=== PATIENT | female | born 1945 | race Caucasian/White ===

== ENCOUNTER 2017-06-22 08:42 | Emergency (ER) | payer MEDICARE, BC ==
[2017-06-22 08:58] VITALS: BP 142/60
--- NOTE | 2017-06-22 09:08 | UC ---
Respiratory Complaint HPI - HPI Summary HPI Summary: Pt presents c/o SOB with activity that began yesterday after doing gardening activities, 50 lb bags of mulch, shoveling topsoil and planting quach. Pt denies chest pain or productive cough. Pt does report seasonal allergies but is not taking an antihistamine. 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 - History of Current Complaint Chief Complaint: UCRespiratory Stated Complaint: SOB Time Seen by Provider: 06/22/17 08:50 Hx Obtained From: Patient ?: No Onset/Duration: Gradual Onset, Lasting Days, Still Present Timing: Intermittent Episodes Severity Initially: Mild Severity Currently: Mild Character: Cough: Nonproductive Aggravating Factors: Exertion Alleviating Factors: Spontaneous Resolution Associated Signs And Symptoms: Positive: Dyspnea, URI, Nasal Congestion Related History: Seasonal Allergies - Risk Factors Pulmonary Embolism Risk Factors: Negative Cardiac Risk Factors: Hypertension, CAD Pseudomonas Risk Factors: Chronic Lung Disease Tuberculosis Risk Factors: Negative - Allergies/Home Medications Allergies/Adverse Reactions: Allergies Allergy/AdvReac Type Severity Reaction Status Date / Time Oxycodone Allergy Intermediate Tachycardia Verified 06/22/17 08:49 Morphine Allergy Mild GI Upset Verified 06/22/17 08:49 Olmesartan [From Benicar] Allergy Mild Headache Verified 06/22/17 08:49 Hydrocodone AdvReac Intermediate GI Upset Verified 06/22/17 08:49 PMH/Surg Hx/FS Hx/Imm Hx Previously Healthy: Yes Cardiovascular History: Cardiac Disease, Hypertension Respiratory History: COPD - significant smoking history,, Asthma Other History Of: Negative For: HIV - Surgical History Surgical History: Yes Surgery Procedure, Year, and Place: lower back surgery, hysterectomy-1975. NASAL SEPTUM - Family History Known Family History: Positive: Cardiac Disease - Dad & Mom in 80s, Diabetes Family History: no known cardio-vascular issues in family lineage - Social History Occupation: Retired Lives: With Family Alcohol Use: Daily Alcohol Amount: COUPLE BEERS/DAY Substance Use Type: None Smoking Status (MU): Former Smoker Type: Cigarettes Have You Smoked in the Last Year: No When Did the Patient Quit Smoking/Using Tobacco: 1998 - Immunization History Most Recent Influenza Vaccination: 2017 Review of Systems Constitutional: Negative Skin: Negative Eyes: Negative ENT: Other - nasal congestion, PND, Respiratory: Shortness Of Breath, Cough Cardiovascular: Negative Gastrointestinal: Negative Genitourinary: Negative Motor: Negative Neurovascular: Negative Musculoskeletal: Negative Neurological: Negative Psychological: Negative Is Patient Immunocompromised?: No All Other Systems Reviewed And Are Negative: Yes Physical Exam Triage Information Reviewed: Yes Appearance: Well-Appearing, No Pain Distress Vital Signs: Initial Vital Signs Temp 97.2 F 06/22/17 08:49 Pulse 76 06/22/17 08:49 Resp 20 06/22/17 08:49 BP 142/60 06/22/17 08:49 Pulse Ox 98 06/22/17 08:49 Vital Signs Reviewed: Yes Eye Exam: Normal ENT Exam: Other ENT: Positive: Nasal congestion, Nasal drainage - clear, Other: - nasal mucous memeberanse white and boggy Dental Exam: Normal Neck exam: Normal Respiratory Exam: Normal Respiratory: Positive: Normal breath sounds, No respiratory distress, No accessory muscle use Cardiovascular Exam: Normal Cardiovascular: Positive: RRR Musculoskeletal Exam: Normal Neurological Exam: Normal Psychological Exam: Normal Skin Exam: Normal UC Diagnostic Evaluation - Laboratory O2 Sat by Pulse Oximetry: 98 Respiratory Course/Dx - Course Course Of Treatment: I discussed wiht the pt the need to follow up with her PCP or if symptoms worsen to go to the ER as soon as possible. - Differential Dx/Diagnosis Differential Diagnosis/HQI/PQRI: Bronchitis, Exacerbation Of COPD Provider Diagnoses: exacerbation of COPD. URI. seasonal allergies Discharge - Discharge Plan Condition: Stable Disposition: HOME Prescriptions: Cetirizine* [ZyrTEC 10 MG TAB*] 10 mg PO DAILY #20 tab predniSONE TAB* [Deltasone TAB*] 20 mg PO DAILY #4 tab Patient Education Materials: Upper Respiratory Infection (ED), Allergic Rhinitis (ED), Dyspnea (ED) Referrals: Ema PERKINS,Juan Babin [Primary Care Provider] - As Soon As Possible (Please follow up with your PCP to discuss your visit today. )
== END 2017-06-22 09:26 | disposition home or self-care (01) ==
LOC: UCCORT 08:42
DX: J44.1 Chronic obstructive pulmonary disease with (acute) exacerbation (principal); Z88.6 Allergy status to analgesic agent; I10 Essential (primary) hypertension; J30.2 Other seasonal allergic rhinitis
CPT/HCPCS: 93005; 99212; G0463

== ENCOUNTER 2017-10-27 07:01 | Emergency (ER) | payer MEDICARE, BC ==
[2017-10-27 07:21] VITALS: BP 125/63
--- NOTE | 2017-10-27 07:34 | ED ---
Throat Pain/Nasal Congestion - HPI Summary HPI Summary: 72yr old female with the complaint of sneezing, runny nose, coughing. Onset yesterday. No fever, no SOB. She states she otherwise feels pretty well. - History of Current Complaint Chief Complaint: UCRespiratory Time Seen by Provider: 10/27/17 07:10 - Allergies/Home Medications Allergies/Adverse Reactions: Allergies Allergy/AdvReac Type Severity Reaction Status Date / Time hydrocodone Allergy GI Upset Verified 10/27/17 07:07 morphine Allergy Headache Verified 10/27/17 07:07 olmesartan Allergy Headache Verified 10/27/17 07:07 oxycodone Allergy Tachycardia Verified 10/27/17 07:07 Home Medications: Home Medications Glucosamine/D3/Boswellia Misty [Osteo Bi-Flex/5-Loxin Adv] 1 tab PO 10/27/17 [ History] PMH/Surg Hx/FS Hx/Imm Hx Endocrine/Hematology History: Denies: Hx Diabetes Cardiovascular History: Reports: Hx Hypertension Denies: Hx Congestive Heart Failure, Hx Deep Vein Thrombosis, Hx Myocardial Infarction, Hx Pacemaker/ICD Respiratory History: Reports: Hx Asthma - NOT SURE IF ITS ASTHMA OR COPD, Hx Chronic Obstructive Pulmonary Disease (COPD) - NOT SURE IF ASTHMA OR COPD Denies: Hx Lung Cancer Neurological History: Denies: Hx Transient Ischemic Attacks (TIA) Psychiatric History: Denies: Hx Anxiety - Cancer History Hx Radiation Therapy: No - Surgical History Surgery Procedure, Year, and Place: lower back surgery, hysterectomy-1975. NASAL SEPTUM Infectious Disease History: No Infectious Disease History: Denies: Traveled Outside the [place] in Last 30 Days - Family History Known Family History: Positive: Cardiac Disease - Dad & Mom in 80s, Diabetes Family History: no known cardio-vascular issues in family lineage - Social History Alcohol Use: Daily Alcohol Amount: COUPLE BEERS/DAY Substance Use Type: Reports: None Smoking Status (MU): Former Smoker Type: Cigarettes Have You Smoked in the Last Year: No Review of Systems Constitutional: Negative Positive: Nasal Discharge Positive: Cough All Other Systems Reviewed And Are Negative: Yes Physical Exam Triage Information Reviewed: Yes Vital Signs On Initial Exam: Initial Vitals Temp Pulse Resp BP Pulse Ox 99.2 F 75 18 125/63 98 10/27/17 07:09 10/27/17 07:09 10/27/17 07:09 10/27/17 07:09 10/27/17 07:09 Vital Signs Reviewed: Yes Appearance: Positive: Well-Appearing, No Pain Distress Skin: Positive: Warm, Skin Color Reflects Adequate Perfusion Head/Face: Positive: Normal Head/Face Inspection Eyes: Positive: EOMI ENT: Positive: Pharynx normal, Nasal congestion, TMs normal Neck: Positive: Nontender Respiratory/Lung Sounds: Positive: Clear to Auscultation, Breath Sounds Present Cardiovascular: Positive: RRR. Negative: Murmur Abdomen Description: Positive: Nontender Musculoskeletal: Positive: Strength/ROM Intact Neurological: Positive: Sensory/Motor Intact, Alert, Oriented to Person Place, Time, CN Intact II-III Psychiatric: Positive: Normal - Ana Coma Scale Best Eye Response: 4 - Spontaneous Best Motor Response: 6 - Obeys Commands Best Verbal Response: 5 - Oriented Coma Scale Total: 15 Diagnostics - Vital Signs Vital Signs Temp Pulse Resp BP Pulse Ox 10/27/17 07:09 99.2 F 75 18 125/63 98 - Laboratory Lab Statement: Any lab studies that have been ordered have been reviewed, and results considered in the medical decision making process. EENT Course/Dx - Course Course Of Treatment: 72 yr old female with URI symptoms. - Diagnoses Provider Diagnoses: Upper respiratory infection Discharge - Discharge Plan Condition: Good Disposition: HOME Patient Education Materials: Upper Respiratory Infection (ED) Referrals: Ema PERKINS,Juan Babin [Primary Care Provider] - 2 Days
== END 2017-10-27 07:56 | disposition home or self-care (01) ==
LOC: UCCORT 07:01
DX: J06.9 Acute upper respiratory infection, unspecified (principal); E11.9 Type 2 diabetes mellitus without complications; I10 Essential (primary) hypertension; Z87.891 Personal history of nicotine dependence
CPT/HCPCS: 87502; 99212; G0463

== ENCOUNTER 2018-02-23 08:23 | Emergency (ER) | payer MEDICARE, BC ==
[2018-02-23 08:48] VITALS: BP 120/53
--- NOTE | 2018-02-23 09:40 | UC ---
Skin Complaint HPI - HPI Summary HPI Summary: pt p/w c/o burning pain and tenderness on the surface of her skin just to the right of her spine under her bra strap. the pain started last friday. pt had her 80-plus year old neighbor to look. the neighbor noted a "black sliver or piece lint" and removed it. the pain improved but did not resolve. pt then asked her daughter to look. her daughter noted a small black peace of something was still in the skin and removed it with tweezers. pain persists but only in the spot that contained the black thing. concerned for possible tick bite, concerned for shingles. - History of Current Complaint Chief Complaint: UCSkin Time Seen by Provider: 02/23/18 09:02 Stated Complaint: BACK SKIN COMPLAINT Hx Obtained From: Patient ?: No Onset/Duration: Sudden Onset, Lasting Days, Still Present Timing: Constant Onset Severity: Moderate Current Severity: Moderate Pain Intensity: 4 Location: Discrete Character: Pain Aggravating Factor(s): Other - bra strap Alleviating Factor(s): Other - dressing Associated Signs & Symptoms: Positive: Tenderness. Negative: Nausea, Vomiting, Numbness, Diaphoresis, Weakness, Difficulty Breathing, Fever, Chills, Cough, Chest Pain, Hoarseness, Throat Tightening, Rash, Abdominal Pain, Lightheadedness , Syncope, Drainage, Bruising, Red Streaks, Joint Swelling - Allergy/Home Medications Allergies/Adverse Reactions: Allergies Allergy/AdvReac Type Severity Reaction Status Date / Time oxycodone Allergy Tachycardia Verified 10/27/17 07:07 hydrocodone AdvReac GI Upset Verified 02/23/18 08:48 morphine AdvReac Headache Verified 02/23/18 08:48 olmesartan AdvReac Headache Verified 02/23/18 08:48 Review of Systems Constitutional: Negative Skin: Other - see hpi Eyes: Negative ENT: Negative Respiratory: Negative Cardiovascular: Negative Gastrointestinal: Negative Musculoskeletal: Negative Neurological: Negative Is Patient Immunocompromised?: No All Other Systems Reviewed And Are Negative: Yes PMH/Surg Hx/FS Hx/Imm Hx - Additional Past Medical History Additional PMH: 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 NASAL SEPTUM - Family History Known Family History: Positive: Cardiac Disease - Dad & Mom in 80s, Hypertension , Diabetes Family History: no known cardio-vascular issues in family lineage - Social History Alcohol Use: Daily Alcohol Amount: COUPLE BEERS/DAY Substance Use Type: None Smoking Status (MU): Former Smoker Type: Cigarettes Length of Time of Smoking/Using Tobacco: approx 30+ yrs Have You Smoked in the Last Year: No When Did the Patient Quit Smoking/Using Tobacco: 1999 - Immunization History Most Recent Influenza Vaccination: 2016 Physical Exam Triage Information Reviewed: Yes Appearance: Well-Appearing, No Pain Distress, Well-Nourished Vital Signs: Initial Vital Signs Temp 98 F 02/23/18 08:37 Pulse 78 02/23/18 08:37 Resp 16 02/23/18 08:37 BP 120/53 02/23/18 08:37 Pulse Ox 94 02/23/18 08:37 Vital Signs Reviewed: Yes Eyes: Positive: Conjunctiva Clear. Negative: Discharge ENT: Positive: Hearing grossly normal. Negative: Muffled voice, Hoarse voice Neck: Positive: Supple Respiratory: Positive: Lungs clear, Normal breath sounds, No respiratory distress, No accessory muscle use Cardiovascular: Positive: RRR, No Murmur Musculoskeletal Exam: Normal Neurological Exam: Normal Neurological: Positive: Alert, Muscle Tone Normal Psychological: Positive: Age Appropriate Behavior Skin: Positive: Other - affected skin is negative for bruising, erythema, swelling, calor, weeping or drainage. there is only 1 lesion, a small red spot from which the "black sliver" was removed. this is the only spot which is tender. Course/Dx - Differential Diagnoses - Skin Complaint Differential Diagnoses: Tick Born Illness, Varicella Zoster - Diagnoses Provider Diagnoses: shnigles Discharge - Sign-Out/Discharge Documenting (check all that apply): Discharge/Admit/Transfer - Discharge Plan Condition: Stable Disposition: HOME Prescriptions: ValACYclovir (*) [Valtrex (*)] 1 gm PO TID #21 tab Patient Education Materials: Shingles (ED), Tick Bite (ED), Lyme Disease (ED) Referrals: Ema PERKINS,Juan Babin [Primary Care Provider] - 1 Week Additional Instructions: Your history and physical exam are suspicious for both shingles and a tick bite. We have offered you treatment for shingle and you have chosen to go forward with that treatment. That said, you should still monitor this area on a daily basis to see if a bulls eye rash develops. If one does, that rash will certainly indicate that you have Lyme disease and should receive treatment as soon as possible. The appearance of this rash will also mean that shingle is probably not the cause of your pain. So you can stop the Valtrex. You should also monitor for any other symptoms of Lyme disease. To this end, we have included educational materials on both tick bites and Lyme disease along with info on shingles. - Billing Disposition and Condition Condition: STABLE Disposition: Home
== END 2018-02-23 09:37 | disposition home or self-care (01) ==
LOC: UCCORT 08:23
DX: B02.9 Zoster without complications (principal); E78.00 Pure hypercholesterolemia, unspecified; K21.9 Gastro-esophageal reflux disease without esophagitis; I10 Essential (primary) hypertension
CPT/HCPCS: 99212; G0463

== ENCOUNTER 2019-03-22 08:14 | Emergency (ER) | payer MEDICARE, BC ==
[2019-03-22 08:46] VITALS: BP 135/67
--- NOTE | 2019-03-22 09:44 | UC ---
Truncal Trauma HPI - HPI Summary HPI Summary: Pt c/o left anterior lower rib cage pain that began ~ 1 week ago after carrying a bench. Pt denies falling or direct trauma to area. Pain is imporving but still continues to be painful with "certain movements" - History Of Current Complaint Chief Complaint: UCGeneralIllness Stated Complaint: LEFT SIDE RIB CAGE BRUISING Time Seen by Provider: 03/22/19 09:29 Hx Obtained From: Patient ?: No Onset/Duration: Sudden Onset, Lasting Days, Still Present Onset Of Pain: Post Accident Severity Initially: Moderate Severity Currently: Mild Pain Intensity: 4 Aggravating Factor(s): Movement Alleviating factor(s): Rest Associated Signs And Symptoms: Positive: Negative - Allergies/Home Medications Allergies/Adverse Reactions: Allergies Allergy/AdvReac Type Severity Reaction Status Date / Time oxycodone Allergy Tachycardia Verified 10/27/17 07:07 hydrocodone AdvReac GI Upset Verified 02/23/18 08:48 morphine AdvReac Headache Verified 02/23/18 08:48 olmesartan AdvReac Headache Verified 02/23/18 08:48 PMH/Surg Hx/FS Hx/Imm Hx Previously Healthy: Yes Endocrine History: Dyslipidemia Respiratory History: COPD Other History Of: Negative For: HIV - Surgical History Surgical History: Yes Surgery Procedure, Year, and Place: lower back surgery, hysterectomy-1975. NASAL SEPTUM - Family History Known Family History: Positive: Cardiac Disease - Dad & Mom in 80s, Hypertension , Diabetes Family History: no known cardio-vascular issues in family lineage - Social History Occupation: Retired Lives: Alone Alcohol Use: Daily Alcohol Amount: COUPLE BEERS/DAY Substance Use Type: None Smoking Status (MU): Former Smoker Type: Cigarettes Length of Time of Smoking/Using Tobacco: approx 30+ yrs Have You Smoked in the Last Year: No When Did the Patient Quit Smoking/Using Tobacco: 1999 - Immunization History Most Recent Influenza Vaccination: 2017 Vaccination Up to Date: Yes Review of Systems All Other Systems Reviewed And Are Negative: Yes Constitutional: Positive: Negative Skin: Positive: Negative Eyes: Positive: Negative ENT: Positive: Negative Respiratory: Positive: Negative Cardiovascular: Positive: Negative Gastrointestinal: Positive: Negative Genitourinary: Positive: Negative Motor: Positive: Decreased ROM - pain wiht ROM Neurovascular: Positive: Negative Musculoskeletal: Positive: Arthralgia, Decreased ROM - pain with ROM, Myalgia Neurological: Positive: Negative Psychological: Positive: Negative Is Patient Immunocompromised?: No Physical Exam Triage Information Reviewed: Yes Appearance: Well-Appearing Vital Signs: Initial Vital Signs Temp 98.1 F 03/22/19 08:39 Pulse 73 03/22/19 08:39 Resp 18 03/22/19 08:39 BP 135/67 03/22/19 08:39 Pulse Ox 96 03/22/19 08:39 Vital Signs Reviewed: Yes Eye Exam: Normal ENT: Positive: Hearing grossly normal Dental Exam: Normal Neck exam: Normal Respiratory Exam: Normal Cardiovascular Exam: Normal Abdominal Exam: Other - tenderness at LUQ, at medial/mid line ribs #7-10 Musculoskeletal: Positive: Other: - pain with movement, sitting up from laying down position Neurological Exam: Normal Psychological Exam: Normal Skin Exam: Normal Diagnostics - Radiology No standard instances Radiology Interpretation Completed By: Radiologist - IMPRESSION: 1. POSSIBLE NONDISPLACED FRACTURE OF THE LEFT ANTEROLATERAL SEVENTH RIB RECOMMEND CORRELATION WITH POINT TENDERNESS. 2. LOW LUNG VOLUMES LEFT BASILAR ATELECTASIS. Truncal Trauma Course/Dx - Differential Dx/Diagnosis Differential Diagnosis/HQI/PQRI: Chest Wall Contusion, Rib Fracture Provider Diagnosis: Rib fracture Discharge - Sign-Out/Discharge Documenting (check all that apply): Patient Departure All imaging exams completed and their final reports reviewed: Yes - Discharge Plan Condition: Stable Disposition: HOME Patient Education Materials: Rib Fracture (ED) Referrals: Jose Mcdermott MD [Medical Doctor] - If Needed Ema PERKINS,Juan Babin [Primary Care Provider] - If Needed Additional Instructions: Please follow up with your PCP or with an orthopedic provider as needed. If your symptoms worsen or do not improved seek care immediately at the closest emergency room. - Billing Disposition and Condition Condition: STABLE Disposition: Home
== END 2019-03-22 09:58 | disposition home or self-care (01) ==
LOC: UCCORT 08:14
DX: S22.32XA Fracture of one rib, left side, initial encounter for closed fracture (principal); X58.XXXA Exposure to other specified factors, initial encounter; Y92.9 Unspecified place or not applicable; Z88.5 Allergy status to narcotic agent; Z87.891 Personal history of nicotine dependence
CPT/HCPCS: 99212; G0463

== ENCOUNTER 2019-07-14 07:00 | Emergency (ER) | payer MEDICARE, BC ==
[2019-07-14 07:13] VITALS: BP 134/53
--- NOTE | 2019-07-14 07:24 | UC ---
Respiratory Complaint HPI - HPI Summary HPI Summary: cough x 3 days cough is productive with yellow sputum nasal congestion , pnd, no fever, no chills no wheezing, no sob - History of Current Complaint Chief Complaint: UCGeneralIllness Stated Complaint: COUGH,ACHES Time Seen by Provider: 07/14/19 07:08 Hx Obtained From: Patient Onset/Duration: Gradual Onset, Lasting Days - 3, Still Present Timing: Constant Severity Initially: Moderate Severity Currently: Moderate Pain Intensity: 0 Character: Cough: Productive Aggravating Factors: Exertion, Deep Breaths Associated Signs And Symptoms: Positive: URI, Nasal Congestion. Negative: Dyspnea, Fever, Chills, Pleuritic Chest Pain, Wheezing, Hemoptysis, Dizziness, Calf Pain, Calf Swelling, Edema, Hoarseness, Sinus Discomfort - Allergies/Home Medications Allergies/Adverse Reactions: Allergies Allergy/AdvReac Type Severity Reaction Status Date / Time oxycodone Allergy Tachycardia Verified 07/14/19 07:12 hydrocodone AdvReac GI Upset Verified 07/14/19 07:12 morphine AdvReac Headache Verified 07/14/19 07:12 olmesartan AdvReac Headache Verified 07/14/19 07:12 PMH/Surg Hx/FS Hx/Imm Hx Cardiovascular History: Cardiac Disease, Hypertension Respiratory History: Asthma Psychological History: Anxiety, Depression Other History Of: Negative For: HIV - Surgical History Surgical History: Yes Surgery Procedure, Year, and Place: lower back surgery, hysterectomy-1975. NASAL SEPTUM - Family History Known Family History: Positive: Cardiac Disease - Dad & Mom in 80s, Hypertension , Diabetes Family History: no known cardio-vascular issues in family lineage - Social History Alcohol Use: Weekly Alcohol Amount: COUPLE BEERS/DAY Substance Use Type: None Smoking Status (MU): Former Smoker Type: Cigarettes Length of Time of Smoking/Using Tobacco: approx 30+ yrs Have You Smoked in the Last Year: No When Did the Patient Quit Smoking/Using Tobacco: 1999 - Immunization History Most Recent Influenza Vaccination: 2017 Vaccination Up to Date: Yes Review of Systems All Other Systems Reviewed And Are Negative: Yes Constitutional: Positive: Negative. Negative: Fever, Chills, Fatigue Skin: Positive: Negative Eyes: Positive: Negative ENT: Positive: Nasal Discharge, Sinus Congestion. Negative: Sinus Pain/ Tenderness Respiratory: Positive: Cough Cardiovascular: Positive: Negative Is Patient Immunocompromised?: No Physical Exam Triage Information Reviewed: Yes Appearance: Well-Appearing, No Pain Distress, Well-Nourished Vital Signs: Initial Vital Signs Temp 98.4 F 07/14/19 07:08 Pulse 81 07/14/19 07:08 Resp 18 07/14/19 07:08 BP 134/53 07/14/19 07:08 Pulse Ox 100 07/14/19 07:08 Eye Exam: Normal Eyes: Positive: Conjunctiva Clear ENT: Positive: Normal ENT inspection, Hearing grossly normal, Pharynx normal, Nasal congestion, Nasal drainage, TMs normal. Negative: Pharyngeal erythema Neck exam: Normal Neck: Positive: Supple, Nontender, No Lymphadenopathy Respiratory: Positive: Chest non-tender, Lungs clear, Normal breath sounds, No respiratory distress Cardiovascular: Positive: RRR, No Murmur, Pulses Normal Respiratory Course/Dx - Differential Dx/Diagnosis Provider Diagnosis: URI (upper respiratory infection) Discharge ED - Sign-Out/Discharge Documenting (check all that apply): Patient Departure All imaging exams completed and their final reports reviewed: No Studies - Discharge Plan Condition: Stable Disposition: HOME Prescriptions: Benzonatate CAP* [Tessalon 100 MG CAP*] 100 mg PO TID PRN #21 cap PRN Reason: Cough Patient Education Materials: Upper Respiratory Infection (DC) Referrals: Ema PERKINS,Juan Babin [Primary Care Provider] - If Needed - Billing Disposition and Condition Condition: STABLE Disposition: Home
== END 2019-07-14 07:34 | disposition home or self-care (01) ==
LOC: UCCORT 07:00
DX: J06.9 Acute upper respiratory infection, unspecified (principal); J45.909 Unspecified asthma, uncomplicated; I10 Essential (primary) hypertension; Z88.5 Allergy status to narcotic agent; Z88.8 Allergy status to other drugs, medicaments and biological substances; Z87.891 Personal history of nicotine dependence
CPT/HCPCS: 99212; G0463